=== PATIENT | female | born 1980 ===

== ENCOUNTER 2021-06-06 22:25 | Emergency (ER) | payer OTHER ==
[~2021-06-06] VITALS: Ht 160 cm; Wt 55.1 kg
[2021-06-07 01:09] LABS: URINE HCG NEGATIVE (NEG)
[2021-06-07 01:14] LABS: URINE AMPHETAMINE SCREEN NEGATIVE (Neg); URINE BARBITUATE SCREEN NEGATIVE (Neg); URINE BENZODIAZEPINES SCREEN NEGATIVE (Neg); URINE CANNABINOID SCREEN NEGATIVE (Neg); URINE COCAINE SCREEN NEGATIVE (Neg); URINE METHADONE SCREEN NEGATIVE (Neg); URINE OPIATE SCREEN NEGATIVE (Neg); URINE PHENCYCLIDINE SCREEN NEGATIVE (Neg)
[2021-06-07 01:50] LABS: BASOPHILS # (AUTO) 0.1 X10'3 (0-0.2); EOSINOPHILS # (AUTO) 0.4 X10'3 (0-0.9); EOSINOPHILS % (AUTO) 3.3 % (0-6); HEMATOCRIT 40.5 % (35.0-45.0); HEMOGLOBIN 13.8 g/dl (12.0-16.0); LYMPHOCYTES # (AUTO) 2.8 X10'3 (1.1-4.8); LYMPHOCYTES % (AUTO) 23.3 % (21-51); MEAN CORPUSCULAR HEMOGLOBIN 30.1 PG (27.0-31.0); MEAN CORPUSCULAR HGB CONC 34.1 g/dL (33.0-36.5); MEAN CORPUSCULAR VOLUME 88.4 FL (78-98); MEAN PLATELET VOLUME 7.4 FL (7.4-10.4); MONOCYTES # (AUTO) 0.8 X10'3 (0-0.9); NEUTROPHILS # (AUTO) 7.9 X10'3 (1.8-7.7); NEUTROPHILS % (AUTO) 65.4 % (42-75); PLATELET COUNT 552 X10'3 (140-440); RED BLOOD COUNT 4.59 X10'6 (4.20-5.60); RED CELL DISTRIBUTION WIDTH 13.5 % (11.5-14.5); WHITE BLOOD COUNT 12.1 X10'3 (4.5-11.0)
--- NOTE | 2021-06-07 02:00 | NUR ---
PT ROOMED IN BED 12. PT GOES FROM CRYING TO LAUGHING. SAYS SHE HAS BEEN "HEARING THE VOICES OF THE gods. Hair disheveled.
[2021-06-07 02:04] LABS: ALANINE AMINOTRANSFERASE 19 U/L (12-78); ALBUMIN 3.4 G/DL (3.4-5.0); ALBUMIN/GLOBULIN RATIO 0.7 (1.1-1.5); ALKALINE PHOSPHATASE 122 IU/L (46-116); ANION GAP 14 (8-16); BILIRUBIN,TOTAL 0.2 MG/DL (0.1-1.0); BLOOD UREA NITROGEN 19 MG/DL (7-18); BUN/CREATININE RATIO 25.7 (6.6-38.0); CALCIUM 8.8 MG/DL (8.5-10.1); CHLORIDE 102 MMOL/L (99-107); CREATININE 0.74 MG/DL (0.40-0.90); ETHANOL 0.069 GM/DL (0.0-0.010); SODIUM 138 MMOL/L (135-145); TOTAL PROTEIN 8.4 G/DL (6.4-8.2); eGFR 86 ML/MIN
[2021-06-07 02:40] LABS: ASPARTATE AMINO TRANSFERASE 14 U/L (10-37); GLUCOSE 111 MG/DL (70-104)
--- NOTE | 2021-06-07 03:00 | NUR ---
PT WALKED TO THE BATHROOM AND WALKED BACK TO BED .
--- NOTE | 2021-06-07 04:00 | NUR ---
PT WAS GIVEN A SNACK REQUESTED. SHE IS SITTING ON A CORNER OF HER ROOM. GOES FROM CRYING TO SMILING AGAIN. DENIES ANY SUICIDAL OR HOMICIDAL IDEATIONS.
--- NOTE | 2021-06-07 05:03 | NUR ---
CHART SENT TO [facility]
--- NOTE | 2021-06-07 05:32 | NUR ---
PT SLEEPING. EQUAL RISE AND FALL OF CHEST
--- NOTE | 2021-06-07 06:45 | NUR ---
Patient brought over by Zilico Fabiana. Patient angry and would not give us her jacket or bra. Security was called and patient screaming but gave them up. Patient is now getting vital signs and attempting to sleep. Continue to monitor.
--- NOTE | 2021-06-07 07:10 | NUR ---
Patient sleeping. on right side. No distress observed. Continue to monitor.
--- NOTE | 2021-06-07 09:05 | NUR ---
Patient's breakfast at bedside. Patient continues to sleep. Continue to monitor.
--- NOTE | 2021-06-07 11:10 | NUR ---
Glor[facility], evaluating patient. Continue to monitor.
[2021-06-07 12:22] LABS: CLARITY,URINE CLEAR (Clear); GLUCOSE, URINE NEGATIVE (Neg); KETONES,URINE NEGATIVE (Neg); LEUKOCYTE ESTERASE ,URINE NEGATIVE (Neg); NITRITES, URINE NEGATIVE (Neg); OCCULT BLOOD,URINE NEGATIVE (Neg); PROTEIN,URINE NEGATIVE (Neg); UROBILINOGEN,URINE 0.2 E.U/dL (0.2-1.0)
--- NOTE | 2021-06-07 12:29 | NUR ---
Patient is back asleep. No distress observed. Continue to monitor.
[2021-06-07 12:33] LABS: COLOR,URINE STRAW (Yellow); UA COLLECTION TYPE CLN CATCH MIDSTREAM
--- NOTE | 2021-06-07 13:33 | NUR ---
funmilayo asleep. we will monitor.
--- NOTE | 2021-06-07 14:35 | NUR ---
Patient sleeping on left side. No distress observed. Continue to monitor.
--- NOTE | 2021-06-07 16:24 | NUR ---
RN inspected patient's huge hair. Patient does not appear to have any bugs/lice. However patient's hair is glued in a very large pile on her head with dried glue all over her head and hair. No distress observed. Continue to monitor.
--- NOTE | 2021-06-07 16:27 | NUR ---
Patient accepted at [facility]. Leaving around 1999 tonight. [facility] office will call later with details.
[2021-06-07 17:53] VITALS: BP 117/72
== END 2021-06-07 19:49 ==
LOC: ER 22:26
DX: F23 Brief psychotic disorder (principal); Z20.822 Contact with and (suspected) exposure to COVID-19; F31.9 Bipolar disorder, unspecified; Z88.1 Allergy status to other antibiotic agents
CPT/HCPCS: 36415; 80053; 80305; 80320; 81003; 81025; 84443; 85025; 87635; 99285; C9803